=== PATIENT | male | born 1940 | race Hispanic/Latino ===

== ENCOUNTER 2020-09-25 13:27 | Day surgery (SDC) | payer MEDICARE ==
--- NOTE | 2020-09-25 10:12 | Anesthesia Day of Surgery ---
Anesthesia Day of Surgery - Day of Surgery Patient Examined: Yes Patient H&P Reviewed: Yes Patient is NPO: Yes
--- NOTE | 2020-09-25 10:13 | Anesthesia Consultation ---
Anesthesia Consult and Med Hx Date of service: 09/25/20 - Airway Anesthetic Teeth Evaluation: Dentures, Edentulous ROM Head & Neck: Adequate Mental/Hyoid Distance: Adequate Mallampati Class: Class II Intubation Access Assessment: Good - Pre-Operative Health Status ASA Pre-Surgery Classification: ASA2 Proposed Anesthetic Plan: General - Pulmonary Hx Smoking: Yes ( PPD X 50 YRS) SOB: No (+2FS; active and can walk as far as he wants) Hx Sleep Apnea: No (JCARLOS PRE SCREEN LOW RISK) - Cardiovascular System Hx Hypertension: No - Central Nervous System Hx Psychiatric Problems: No - Other Systems Hx Cancer: No Hx Obesity: No
[~2020-09-25 13:27] MED LIST: ACETAMINOPHEN 325 MG TAB PO SCH; BUPIVACAINE/PF (0.5%) 5 MG/1 ML 30 ML VIAL INFILTRATI ONE; CELECOXIB 200 MG CAP PO NR; HEPARIN 5,000 UNIT/1 ML VIAL SUB-Q NR; HYDROmorphone 1 MG/1 ML INJ IV PRN; LACTATED RINGERS 1,000 ML IV SCH; MAGNESIUM OXIDE 400 MG TAB PO SCH; ONDANSETRON 4 MG/2 ML INJ IV PRN; ceFAZolin/STERILE WATER 2 GM/20 ML SYRINGE IV NR
[2020-09-25] MEDS ORDERED: propofoL 200 MG/20 ML VIAL IV ONE (14:08)
[2020-09-25] MEDS ORDERED: ROCURONIUM 50 MG/5 ML INJ IV ONE (14:08)
[2020-09-25] MEDS ORDERED: fentaNYL 100 MCG/2 ML INJ ONE (14:08)
[2020-09-25] MEDS ORDERED: LIDOCAINE MPF (2%) 20 MG/1 ML VIAL 5 ML ONE (14:37)
[2020-09-25] MEDS ORDERED: MIDAZOLAM 2 MG/2 ML INJ ONE (14:44)
[2020-09-25] MEDS ORDERED: PHENYLEPHRINE/NS 1,000 MCG/10 ML SYRINGE (OR USE) IV ONE (14:57)
[2020-09-25] MEDS ORDERED: SODIUM CHLORIDE 0.9% IRR 1,500 ML BOTTLE IR ONE (15:20)
[2020-09-25] MEDS ORDERED: BUPIVACAINE/PF (0.5%) 5 MG/1 ML 30 ML VIAL INFILTRATI ONE (15:20)
[2020-09-25] MEDS ORDERED: SODIUM CHLORIDE 0.9% IRRIG SOLN 2000 ML IR ONE (15:20)
[2020-09-25] MEDS ORDERED: LACTATED RINGERS 1,000 ML ONE (16:08)
[2020-09-25] MEDS ORDERED: GLYCOPYRROLATE 0.4 MG/2 ML INJ ONE (16:09)
[2020-09-25] MEDS ORDERED: NEOSTIGMINE 10MG/10 ML INJ MDV ONE (16:09)
[2020-09-25] MEDS ORDERED: ONDANSETRON 4 MG/2 ML INJ ONE (16:10)
[2020-09-25] MEDS ORDERED: KETOROLAC 30 MG/1 ML INJ ONE (16:36)
--- NOTE | 2020-09-25 16:40 | Procedure Note ---
Date of procedure: 09/25/20 Pre-op diagnosis: 1) Chronic cholecystitis 2) Umbilical hernia Post-op diagnosis: same Procedure: 1) Laparoscopic cholecystectomy 2) Open repair of umbilical hernia Description of procedure: Pt was placed supine on the OR table. General anesthesia was administered. Abdomen was prepped and draped. Proposed trocar sites were infiltrated with 10 ml of 0.5% Marcaine. A small infraumbilical incision was made. The umbilical hernia sac was immediately identified. The sac was dissected off of the umbilical dermis. The sac was dissected down to it's fascial margins. The sac was incised and did not contain any incarcerated tissue. The sac was excised. A Prateek port was inserted into the peritoneal cavity and pneumoperitoneum established. A 10 mm subxiphoid, 5 mm RUQ and 5 mm right lateral ports were inserted into the peritoneal cavity under direct vision without incident. Pt was placed in a reverse Trendelenburg position with his right side rotated upwards. Fundus of the gallbladder was grasped and was retracted cephalad. Cyst duct and artery were skeletonized. Gallbladder neck was dissected circumferentially and the critical view of safety established. Cystic duct was milked towards the gallbladder. The cystic duct and artery were doubly clipped and divided. Gallbladder was dissected off of the liver bed with cautery. Gallbladder was placed in an endobag and the endobag removed via the umbilical fascial defect. Prateek port was replaced and pneumoperitoneum re- established. The was no bleeding from the areas of dissection. The upper ports were removed and no bleeding was identified from the port entry sites under low pressure. The umbilical fascial defect was closed with interrupted sutures of 0-Ethibond. Skin incisions were closed with running subcuticular sutures of 4-0 Monocryl. Skin glue was applied to all incisions. Pt tolerated the procedure well. Pt was taken to PACU in stable condition. Anesthesia: GETA Surgeon: MERCEDEZ MERCHANT Estimated blood loss: minimal Pathology: list (1) Gallbladder and gallstone) Specimen disposition: to lab Condition: stable Disposition: PACU
[2020-09-25 17:37] VITALS: BP 145/57
== END 2020-09-25 18:15 | disposition home or self-care (01) ==
LOC: OR 13:27
PROVIDERS: ATTEND Surgery
DX: K80.10 Calculus of gallbladder with chronic cholecystitis without obstruction (principal); K42.9 Umbilical hernia without obstruction or gangrene; Z20.828 Contact with and (suspected) exposure to other viral communicable diseases; F17.210 Nicotine dependence, cigarettes, uncomplicated; Z79.899 Other long term (current) drug therapy; Z90.49 Acquired absence of other specified parts of digestive tract; Z98.890 Other specified postprocedural states
CPT/HCPCS: 47562; 49585; 88304; A4217; J0690; J1644; J1885; J2250; J2370; J2405; J2704; J2710; J3010; J7120; U0003